=== PATIENT | male | born 1970 | race Caucasian/White ===

== ENCOUNTER → 2022-01-12 | Day surgery (SDC) | payer BC ==
[~2022-01-12] MED LIST: IBUPROFEN600 MG PO; LEVOTHYROXINE100 MC2 PO; MEN'S DAILY FO1 EACH PO; NAPROXEN500 MG PO; NEXIUM20 MG PO; NORFLEX 100 MG100 MG PO; VIAGRA50 MG PO
== END | disposition home or self-care (01) ==
LOC: OR 06:11
DX: D23.72 Other benign neoplasm of skin of left lower limb, including hip (principal); I10 Essential (primary) hypertension; E03.9 Hypothyroidism, unspecified; K21.9 Gastro-esophageal reflux disease without esophagitis; E78.5 Hyperlipidemia, unspecified; Z79.899 Other long term (current) drug therapy; Z88.8 Allergy status to other drugs, medicaments and biological substances
CPT/HCPCS: J0690; J2001; J2250; J2405; J2704; J3010